=== PATIENT | male | born 1965 | race Caucasian/White ===

== ENCOUNTER → 2019-10-20 | Outpatient (CLI) | payer OTHER ==
--- NOTE | 2019-10-20 09:17 | US ---
EXAMINATION TYPE: US thyroid st tissue head/neck DATE OF EXAM: 10/20/2019 COMPARISON: NONE CLINICAL HISTORY: R22.1 Localized swelling, mass and lump in neck.... Left lump in neck below left ea r. Hypoechic area seen measuring 2.6 x 1.8 x 1.9cm with color flow visualized. IMPRESSION: There is a a 2.6 similar hypoechoic mass with flow. Recommend CT.
--- NOTE | 2019-10-20 09:55 | US ---
EXAMINATION TYPE: US prostate transrectal DATE OF EXAM: 10/20/2019 COMPARISON: NONE CLINICAL HISTORY: N40.0 BENIGN PROSTATIC HYPERPLASIA WITHOUT LOWER UI. Enlarged prostate. This examination was performed using the transrectal probe. EXAM MEASUREMENTS: Gland Size: 5.4 x 3.6 x 4.9 cm Volume: 49.8 ml Predicted PSA: 5.9 Actual PSA (if available):Not available. Seminal vesicles felt within normal limits for the beginning of study. Heterogeneous enlarged prostat e gland is present without suspicious hypoechoic nodule identified on images saved. IMPRESSION: Enlarged prostate gland without suspicious nodule consistent with BPH. Predicted PSA = volume x 0.12 ng/ml Calculated Volume = 0.5236 x L x W x H
== END | disposition home or self-care (01) ==
LOC: RADUSWWP 08:08
PROVIDERS: ATTEND Family Medicine
DX: R22.1 Localized swelling, mass and lump, neck (principal); R22.0 Localized swelling, mass and lump, head; N40.0 Benign prostatic hyperplasia without lower urinary tract symptoms
CPT/HCPCS: 76536; 76872

== ENCOUNTER → 2019-11-27 | Outpatient (CLI) | payer OTHER ==
[2019-11-27 07:03] LABS: ALT 83 U/L (4-49); AST 45 U/L (17-59); African American GFR (CKD) >90 (>60 ml/min/1.73 sqM); Alkaline Phosphatase 66 U/L (38-126); Anion Gap 6 mmol/L; Blood Urea Nitrogen 14 mg/dL (9-20); Calcium 10.8 mg/dL (8.4-10.2); Carbon Dioxide 28 mmol/L (22-30); Chloride 105 mmol/L (98-107); Glucose 117 mg/dL (74-99); Non-African American GFR(CKD) >90 (>60 ml/min/1.73 sqM); Potassium 4.4 mmol/L (3.5-5.1); Sodium 139 mmol/L (137-145); Total Bilirubin 0.7 mg/dL (0.2-1.3); Total Protein 6.9 g/dL (6.3-8.2)
[2019-11-27 07:04] LABS: Ionized Calcium 5.9 mg/dL (4.5-5.3)
--- NOTE | 2019-11-27 12:16 | CT ---
EXAMINATION TYPE: CT soft tissue neck w con DATE OF EXAM: 11/27/2019 COMPARISON: None HISTORY: Neck mass CT DLP: 840 mGycm CONTRAST: Patient injected with 100 ml mL of Isovue 300. TECHNIQUE: Axial images at 3 mm thick sections. Reconstructed images in the coronal plane and sagitt al plane are reviewed. FINDINGS: Limited CT sections are obtained the lung apices. The lung apices appear clear. CT neck: The torus tubarius and fossa of Rosenmuller are normal. Res[employer] spaces are normal. Para nasal sinuses and mastoid air cells are clear. Posterior to the right parotid gland is a hyperdense area measuring 2.5 x 2.8 cm corresponding to the palpable abnormality. This is most likely an enlarged lymph node. Consider additional workup. MRI wi th contrast may be useful to evaluate the vascularity of the structure. Ultrasound could be performed . Biopsy could be performed. Submandibular glands, are normal. Parapharyngeal spaces are normal. No suspicious adenopathy is kathryn dent. The hypopharynx appears within normal limits. Vocal cord level appear symmetrical. Thyroid as visualized is normal. Osseous structures are normal. IMPRESSIONS: 1. Large hyperdense mass posterior to the parotid gland may be an enlarged lymph node. Additional wor kup recommended.
== END | disposition home or self-care (01) ==
LOC: RADCTMAIN 06:02
PROVIDERS: ATTEND Family Medicine
DX: R22.1 Localized swelling, mass and lump, neck (principal)
CPT/HCPCS: 80053; 82330; 70491; 36415; Q9967